=== PATIENT | female | born 1935 | race Caucasian/White ===

== ENCOUNTER 2018-11-26 04:00 | Inpatient (IN) | payer MEDICARE, BC ==
[2018-11-26 06:19] LABS: ABSOLUTE EOSINOPHILS # (AUTO) 0.1 10^3/uL (0.0-0.6); ABSOLUTE LYMPHOCYTES (AUTO) 1.4 10^3/uL (0.5-4.7); ABSOLUTE MONOCYTES (AUTO) 0.5 10^3/uL (0.1-1.4); ABSOLUTE NEUT (AUTO) 7.1 10^3/uL (1.7-8.2); BASOPHILS % (AUTO) 0.5 % (0-2); EOSINOPHILS % (AUTO) 0.9 % (0-6); HEMATOCRIT 34.2 % (36.0-47.0); HEMOGLOBIN 11.4 g/dL (12.0-15.5); LYMPHOCYTES % (AUTO) 15.6 % (13-45); MEAN CORPUSCULAR HEMOGLOBIN 28.9 pg (27.0-33.4); MEAN CORPUSCULAR HGB CONC 33.4 g/dL (32.0-36.0); MEAN CORPUSCULAR VOLUME 87 fl (80-97); MONOCYTES % (AUTO) 5.2 % (3-13); PLATELET COUNT 279 10^3/uL (150-450); RED BLOOD COUNT 3.95 10^6/uL (3.72-5.28); RED CELL DISTRIBUTION WIDTH 14.1 % (11.5-14.0); SEGMENTED NEUTROPHILS % (AUTO) 77.8 % (42-78); TOTAL CELLS COUNTED % (AUTO) 100 %; WHITE BLOOD COUNT 9.1 10^3/uL (4.0-10.5)
[2018-11-26 06:22] LABS: VENOUS BLOOD BASE EXCESS -2.2 mmol/L; VENOUS BLOOD HCO3 23.7 mmol/L (20-32); VENOUS BLOOD PCO2 44.7 mmHg (35-63); VENOUS BLOOD PH 7.34 (7.30-7.42)
[2018-11-26 06:24] LABS: INTERNATIONAL RATION (INR) 1.09; PROTHROMBIN TIME 14.1 SEC (11.4-15.4)
[2018-11-26 06:27] LABS: ALBUMIN 3.5 g/dL (3.5-5.0); ALKALINE PHOSPHATASE 89 U/L (38-126); ANION GAP 10 (5-19); ASPARTATE AMINO TRANSFERASE 17 U/L (14-36); BILIRUBIN,TOTAL 0.4 mg/dL (0.2-1.3); BLOOD UREA NITROGEN 17 mg/dL (7-20); CALCIUM 9.2 mg/dL (8.4-10.2); CARBON DIOXIDE 25 mmol/L (22-30); CHLORIDE 105 mmol/L (98-107); GLUCOSE 171 mg/dL (75-110); POTASSIUM 3.5 mmol/L (3.6-5.0)
[2018-11-26] MEDS: NORMAL SALINE 1000 ML 1,000 ML IV PRN ×4 (07:54→22:55)
--- NOTE | 2018-11-26 08:03 | RADIOLOGY REPORT (SQ) ---
EXAM DESCRIPTION: CT ABDOMEN PELVIS WITHOUT IV CONTRAST COMPLETED DATE/TME: 11/26/2018 06:13 CLINICAL HISTORY: 83 years, Female, abd pain, N/VD COMPARISON: None. TECHNIQUE: Axial CT images of the abdomen and pelvis were obtained without contrast. Sagittal and coronal reformats were performed. DLP 561 Images stored on PACS. All CT scanners at this facility use dose modulation, iterative reconstruction, and/or weight based dosing when appropriate to reduce radiation dose to as low as reasonably achievable (ALARA). [facility]: Dose Right [facility]: CareDose [facility]: Dose Right [facility]: Teradose 4D [facility]: [employer] LIMITATIONS: None. FINDINGS: Lung bases are clear except for some subsegmental atelectasis of the left lower lobe. Hepatic cysts are noted. There is layering hyperdensity within the gallbladder, which may represent sludge or tiny stones. The pancreas, spleen, and adrenal glands are unremarkable. No evidence of urolithiasis or hydronephrosis bilaterally. There is no intraperitoneal free air or fluid. There is no lymphadenopathy. There are atherosclerotic calcifications of the abdominal aorta without evidence of aneurysm. There is a large hiatal hernia. The small bowel is unremarkable. The appendix is not uniquely identified, however there are no pericecal inflammatory changes. Diverticulosis is noted without evidence of diverticulitis. A Cobian catheter is in place. There are changes of a hysterectomy. There are no lytic or blastic bone lesions. There is mild grade 1 anterolisthesis of L4 over L5 secondary to facet arthropathy. IMPRESSION: No acute findings. Large hiatal hernia. Diverticulosis without evidence of diverticulitis. TECHNICAL DOCUMENTATION: Quality ID # 436: Final reports with documentation of one or more dose reduction techniques (e.g., Automated exposure control, adjustment of the mA and/or kV according to patient size, use of iterative reconstruction technique) copyright 2010 [employer]- All Rights Reserved
[2018-11-26 08:15] LABS: APPEARANCE,URINE SLIGHTLY-CLOUDY; BILIRUBIN,URINE NEGATIVE (NEGATIVE); COLOR,URINE YELLOW; GLUCOSE, URINE 50 mg/dL (NEGATIVE); KETONES,URINE TRACE mg/dL (NEGATIVE); LEUKOCYTE ESTERASE,URINE NEGATIVE (NEGATIVE); NITRITE,URINE POSITIVE (NEGATIVE); PROTEIN,URINE NEGATIVE (NEGATIVE); URINE SPECIFIC GRAVITY 1.012; UROBILINOGEN,URINE NEGATIVE mg/dL (<2.0)
--- NOTE | 2018-11-26 08:28 | RADIOLOGY REPORT (SQ) ---
EXAM DESCRIPTION: CHEST SINGLE VIEW COMPLETED DATE/TIME: 11/26/2018 7:25 am REASON FOR STUDY: AMS COMPARISON: None. EXAM PARAMETERS: NUMBER OF VIEWS: One view. TECHNIQUE: Single frontal radiographic view of the chest acquired. RADIATION DOSE: NA LIMITATIONS: None. FINDINGS: LUNGS AND PLEURA: No opacities, masses or pneumothorax. No pleural effusion. MEDIASTINUM AND HILAR STRUCTURES: No masses. Contour normal. HEART AND VASCULAR STRUCTURES: Cardiomegaly. BONES: No acute findings. HARDWARE: None in the chest. OTHER: No other significant finding. IMPRESSION: Cardiomegaly without acute abnormality of the lungs in AP projection TECHNICAL DOCUMENTATION: JOB ID: [id number] [employer]- All Rights Reserved Reading location - IP/workstation name: [email or web address]
--- NOTE | 2018-11-26 09:27 | EKG REPORT ---
SEVERITY:- ABNORMAL ECG - SINUS RHYTHM VENTRICULAR PREMATURE COMPLEX INTERPOLATED VENTRICULAR PREMATURE COMPLEX FIRST DEGREE AV BLOCK BORDERLINE PROLONGED QT INTERVAL : Confirmed by: Jesika Toussaint MD 26-Nov-2018 09:26:23
[2018-11-26] MEDS ORDERED: CEFTRIAXONE 1 GM/D5W RTU 1 GM/50 ML RTUPB IV ONE (09:56)
[2018-11-26 09:58] LABS: C DIFFICILE GDH NEGATIVE (NEGATIVE)
[2018-11-26] MEDS ORDERED: ONDANSETRON HCL INJ/PF 4 MG/2 ML SDV IV PRN (10:34)
[2018-11-26] MEDS ORDERED: MAG HYDROX/AL HYDROX/SIMETH SUSP 30 ML UDCUP PO PRN (10:34)
[2018-11-26] MEDS ORDERED: ALBUTEROL SULFATE 0.083% NEB 2.5 MG/3 ML AMPUL NEB PRN (10:34)
[2018-11-26] MEDS ORDERED: PROMETHAZINE HCL INJ 25 MG/1 ML VIAL IV PRN (10:34)
--- NOTE | 2018-11-26 10:39 | ER Document Report ---
Doctor's Note Notes: 11/26/18 10:00 Patient is an 83-year-old female whose care was transitioned to pr at 6:30 AM. Patient was seen during EMR downtime so initial history is on paper chart. Patient was brought in for decreased mentation. Patient had had vomiting and diarrhea. Found to be hypothermic in the emergency department with a tempe rature of 94. Initial heart rate in the 40s. Atropine given in warmer placed. Fluids given and patient has responded well to this. She has had a heart rate in the 80s to 90s for the last 4 hours. Blood work is within normal limits except for an elevated lactate of 2.7. Patient received 2 L of fluid and the lactate is now less than 2. Given patient's presentation, she will be kept for admission. Discussed with hospitalist service. Urine is from straight cath. Culture sent and Rocephin ordered given concerning presentation although could be contaminant from diarrhea. Patient apparently ate allyn lettuce last night the rest of the family did not have. Otherwise, she is improved from presentation and stable at the time of admission to the [facility]. Discharge - Discharge Clinical Impression: Dehydration, Bradycardia Hypothermia Qualifiers: Encounter type: initial encounter Qualified Code(s): T68.XXXA - Hypothermia, initial encounter Condition: Stable Disposition: ADMITTED INPATIENT Admitting Provider: Sheila (Hospitalist) - [facility] [place] [facility] Admitted: [facility]
[2018-11-26] MEDS ORDERED: ACETAMINOPHEN 650 MG SUPP.RECT PR PRN (14:35)
[2018-11-26] MEDS ORDERED: LORAZEPAM INJ 2 MG/1 ML VIAL ONE (14:38)
[2018-11-26] MEDS ORDERED: ACETAMINOPHEN 650 MG SUPP.RECT PR ONE (14:39)
[2018-11-26] MEDS: LORAZEPAM INJ 2 MG/1 ML VIAL IV PRN (14:45)
[2018-11-26] MEDS: HEPARIN SOD (PORCINE) 5,000 UNIT/ML 1 ML VIAL SUBCUT SCH ×2 (15:10→23:02)
[2018-11-26] MEDS: MEMANTINE HCL 10 MG TABLET PO SCH (18:37)
[2018-11-26] MEDS: ARIPIPRAZOLE 5 MG TABLET PO SCH (18:37)
--- NOTE | 2018-11-26 19:25 | PDOC H&P ---
History of Present Illness Admission Date/PCP: 11/26/18 10:41 GINA ABDI Patient complains of: Nausea, vomiting, diarrhea, weakness History of Present Illness: LINDA GUTIERREZ is a 83 year old female with a past medical history significant for hypertension, dementia, and depression who presented to the emergency department today via EMS for decreased mentation; patient had had multiple episodes of vomiting and diarrhea overnight. Evaluation in the emergency room initially revealed hypothermia (core temperature 94) heart rate in the 40s, tachypnea (25), and elevated lactic acid of 2.7 which corrected following IV fluids. Chest x-ray was benign, urinalysis suggestive of UTI, CT abdomen pelvis is benign. The patient received IV fluids, atropine x1, bear hugger, with return of normal temperature, heart rate of the stable in the 80s and 90s, and normotensive blood pressures. She was provided IV Rocephin and referred to the hospitalist service for admission and management of the above-stated complaints. Past Medical History Past Medical History: Past medical history is limited; patient is oriented to self only. No family members present at this time. Cardiac Medical History: Reports: Hypertension Endocrine Medical History: Reports: Obesity Psychiatric Medical History: Reports: Dementia, Depression Past Surgical History Past Surgical History: Unable to obtain secondary to patient's baseline mental status. No family members present at this time. Social History Information Source: [facility] Records Lives with: Family Smoking Status: Unknown if Ever Smoked Frequency of Alcohol Use: None Hx Recreational Drug Use: No Drugs: None Hx Prescription Drug Abuse: No - Advance Directive Resuscitation Status: Full Code Family History Family History: Unable to obtain secondary to patient's baseline mental status. No family members present at this time. Parental Family History Reviewed: No Children Family History Reviewed: No Sibling(s) Family History Reviewed.: No Medication/Allergy Home Medications: Aripiprazole [Abilify 5 mg Tablet] 2.5 mg PO BID 11/26/18 Brimonidine Tartrate [Alphagan 0.2% Oph Soln 5 ml] 1 drop OD TID 11/26/18 Donepezil HCl 10 mg PO DAILY 11/26/18 Dorzolamide HCl/Timolol Maleat [Cosopt Oph Soln 10 ml] 1 drop OD DAILY 11/26/18 Escitalopram Oxalate [Lexapro] 20 mg PO DAILY 11/26/18 Latanoprost [Xalatan 0.005% Oph Soln 2.5 ml] 1 drop OD QPM 11/26/18 Losartan Potassium [Cozaar 25 mg Tablet] 25 mg PO DAILY 11/26/18 Memantine HCl 10 mg PO BID 11/26/18 Allergies/Adverse Reactions: No Known Allergies Allergy (Unverified 11/26/18 06:26) Review of Systems ROS unobtainable: Due to mental status Integumentary: ABSENT: rash, wounds Physical Exam Vital Signs: Temp Pulse Resp BP Pulse Ox 99.0 F 21 H 111/75 98 11/26/18 17:50 11/26/18 17:50 11/26/18 17:03 11/26/18 17:50 Intake & Output 11/25/18 11/26/18 11/27/18 06:59 06:59 06:59 Intake Total 1067 Output Total 975 Balance 92 Weight 84 kg General appearance: PRESENT: no acute distress, cooperative, obese, well- developed, well-nourished Head exam: PRESENT: atraumatic, normocephalic Eye exam: PRESENT: conjunctiva pink, EOMI, PERRLA. ABSENT: scleral icterus Ear exam: PRESENT: normal external ear exam Mouth exam: PRESENT: moist, tongue midline Teeth exam: PRESENT: poor dentation Neck exam: ABSENT: carotid bruit, JVD, lymphadenopathy, thyromegaly Respiratory exam: PRESENT: clear to auscultation kev, symmetrical, unlabored. ABSENT: rales, rhonchi, wheezes Cardiovascular exam: PRESENT: RRR, +S1, +S2. ABSENT: diastolic murmur, rubs, systolic murmur Pulses: PRESENT: normal dorsalis pedis pul Vascular exam: PRESENT: normal capillary refill GI/Abdominal exam: PRESENT: normal bowel sounds, soft. ABSENT: distended, guarding, mass, organolmegaly, rebound, tenderness Rectal exam: PRESENT: deferred Extremities exam: PRESENT: full ROM. ABSENT: calf tenderness, clubbing, pedal edema Neurological exam: PRESENT: alert, awake, oriented to person, CN II-XII grossly intact, other - Conversational and socially appropriate. ABSENT: oriented to place, oriented to time, oriented to situation, motor sensory deficit Psychiatric exam: PRESENT: appropriate affect, normal mood. ABSENT: homicidal ideation, suicidal ideation Skin exam: PRESENT: dry, intact, warm. ABSENT: cyanosis, rash Results Laboratory Results: 11/26/18 04:50 11/26/18 04:50 11/26/18 11/26/18 11/26/18 04:50 04:50 04:50 WBC 9.1 RBC 3.95 Hgb 11.4 L Hct 34.2 L MCV 87 MCH 28.9 MCHC 33.4 RDW 14.1 H Plt Count 279 Seg Neutrophils % 77.8 VBG pH VBG pCO2 VBG HCO3 VBG Base Excess Sodium 139.9 Potassium 3.5 L Chloride 105 Carbon Dioxide 25 Anion Gap 10 BUN 17 Creatinine 0.96 Est GFR ( Amer) > 60 Glucose 171 H Lactic Acid 2.7 H Calcium 9.2 Total Bilirubin 0.4 AST 17 Alkaline Phosphatase 89 Total Protein 6.0 L Albumin 3.5 Urine Color Urine Appearance Urine pH Ur Specific [place] Urine Protein Urine Glucose (UA) Urine Ketones Urine Blood Urine Nitrite Ur Leukocyte Esterase Urine WBC (Auto) Urine RBC (Auto) Stool for White Cells 11/26/18 11/26/18 11/26/18 04:50 06: 07:48 WBC RBC Hgb Hct MCV MCH MCHC RDW Plt Count Seg Neutrophils % VBG pH 7.34 VBG pCO2 44.7 VBG HCO3 23.7 VBG Base Excess -2.2 Sodium Potassium Chloride Carbon Dioxide Anion Gap BUN Creatinine Est GFR ( Amer) Glucose Lactic Acid Calcium Total Bilirubin AST Alkaline Phosphatase Total Protein Albumin Urine Color YELLOW Urine Appearance SLIGHTLY-CLOUDY Urine pH 7.0 Ur Specific [place] 1.012 Urine Protein NEGATIVE Urine Glucose (UA) 50 H Urine Ketones TRACE H Urine Blood NEGATIVE Urine Nitrite POSITIVE H Ur Leukocyte Esterase NEGATIVE Urine WBC (Auto) 1 Urine RBC (Auto) 1 Stool for White Cells NO WBCs SEEN 11/26/18 08:16 WBC RBC Hgb Hct MCV MCH MCHC RDW Plt Count Seg Neutrophils % VBG pH VBG pCO2 VBG HCO3 VBG Base Excess Sodium Potassium Chloride Carbon Dioxide Anion Gap BUN Creatinine Est GFR ( Amer) Glucose Lactic Acid 1.1 Calcium Total Bilirubin AST Alkaline Phosphatase Total Protein Albumin Urine Color Urine Appearance Urine pH Ur Specific [place] Urine Protein Urine Glucose (UA) Urine Ketones Urine Blood Urine Nitrite Ur Leukocyte Esterase Urine WBC (Auto) Urine RBC (Auto) Stool for White Cells 09/02/0311/26/18 11/26/18 04:50 04:50 11:00 Creatine Kinase 32 Troponin I 0.031 0.100 11/26/18 16:00 Creatine Kinase Troponin I 0.096 Impressions: Chest X-Ray 11/26/18 00:00 IMPRESSION: Cardiomegaly without acute abnormality of the lungs in AP projection Abdomen/Pelvis CT 11/26/18 06:13 IMPRESSION: No acute findings. Large hiatal hernia. Diverticulosis without evidence of diverticulitis. TECHNICAL DOCUMENTATION: Quality ID # 436: Final reports with documentation of one or more dose reduction techniques (e.g., Automated exposure control, adjustment of the mA and/or kV according to patient size, use of iterative reconstruction technique) copyright 2011 [employer]- All Rights Reserved Assessment and Plan - Diagnosis (1) Urinary tract infection Is this a current diagnosis for this admission?: Yes Plan: Urinalysis reveals UTI. Urine and blood cultures are pending. Patient is empirically placed on IV Rocephin. Will adjust as cultures result. (2) Sepsis Is this a current diagnosis for this admission?: Yes Plan: Multifactorial due to urinary tract infection and gastroenteritis (stool studies pending), present on arrival, evidenced by decreased alertness, hypothermia, bradycardia, tachypnea, elevated lactic acid, and UTI by urinalysis. Blood, urine, stool cultures pending. Patient received IV fluids, atropine for symptomatic bradycardia, placed on bear hugger while in the emergency department with stabilization of vital signs Patient is admitted to [facility] on continuous cardiac telemetry. Serial lactic acid has trended down. We will continue maintenance IV fluids Continue IV Rocephin; will adjust as cultures result. (3) Nausea vomiting and diarrhea Is this a current diagnosis for this admission?: Yes Plan: Likely secondary to sepsis/UTI. C. difficile is negative. Stool for WBCs is negative. Stool culture pending. IV fluids. Clear liquids; advance as tolerated. Antiemetics as needed. (4) Dementia Is this a current diagnosis for this admission?: Yes Plan: Continue home medication regiment of Aricept, Namenda, Abilify, Lexapro. Supportive therapy. Fall precautions. (5) Elevated troponin Is this a current diagnosis for this admission?: Yes Plan: Initial troponin was indeterminately elevated to 0.030. Did trend up to peak of 0.1; down to 0.096. Patient denies chest pain, however is noted to have advanced dementia. Upon arrival to the emergency department she was bradycardic and required atropine. This may have possibly been the source of her elevated troponins. Additionally, the patient presented with sepsis secondary to UTI. EKG demonstrated sinus rhythm with PVC, first-degree AV block, and prolonged QT interval. Chest x-ray demonstrated cardiomegaly but without acute cardiopulmonary processes. Patient likely has underlying CHF. We will obtain follow-up troponin with a.m. lab work. We will repeat EKG in the morning. Continue to monitor on cardiac telemetry. Consider cardiology consultation. - Time Time Spent with patient: 35 or more minutes Medications reviewed and adjusted accordingly: Yes Anticipated discharge: Home with Homehealth Within: within 72 hours
[2018-11-26] MEDS: LATANOPROST 0.005% OPH SOLN 2.5 ML OD SCH (19:34)
[2018-11-26] MEDS: BRIMONIDINE TARTRATE 0.2% OPH SOLN 5 ML OD SCH (22:58)
[2018-11-26] MEDS: FAMOTIDINE 20 MG TABLET PO SCH (23:02)
[2018-11-26] MEDS ORDERED: RINGERS SOLUTION,LACTATED 1,000 ML IV PRN (23:41)
[2018-11-26] MEDS ORDERED: VANCOMYCIN HCL INJ 1000 MG VIAL IV PRN (23:41)
[2018-11-26] MEDS ORDERED: ATROPINE SULFATE INJ 1 MG/1 ML VIAL IV ONE (23:45)
[2018-11-26] MEDS ORDERED: METOCLOPRAMIDE HCL INJ/PF 10 MG/2 ML SDV IV ONE (23:59)
[2018-11-26] MEDS ORDERED: CEFEPIME 2 GM/D5W RTU 2 GM/50 ML RTUPB IV ONE (23:59)
[2018-11-27] MEDS ORDERED: VANCOMYCIN HCL 1,500 MG in DEXTROSE 5%-WATER 250 ML IV ONE (00:30)
[2018-11-27] MEDS ORDERED: NORMAL SALINE 1000 ML 1,000 ML IV ONE ×2 (04:00→16:14)
[2018-11-27 05:07] LABS: HEMATOCRIT 29.5 % (36.0-47.0); HEMOGLOBIN 9.9 g/dL (12.0-15.5); MEAN CORPUSCULAR HEMOGLOBIN 29.4 pg (27.0-33.4); MEAN CORPUSCULAR HGB CONC 33.5 g/dL (32.0-36.0); MEAN CORPUSCULAR VOLUME 88 fl (80-97); PLATELET COUNT 192 10^3/uL (150-450); RED BLOOD COUNT 3.36 10^6/uL (3.72-5.28); RED CELL DISTRIBUTION WIDTH 13.6 % (11.5-14.0); WHITE BLOOD COUNT 6.9 10^3/uL (4.0-10.5)
[2018-11-27] MEDS: HEPARIN SOD (PORCINE) 5,000 UNIT/ML 1 ML VIAL SUBCUT SCH ×3 (05:26→21:34)
[2018-11-27] MEDS: BRIMONIDINE TARTRATE 0.2% OPH SOLN 5 ML OD SCH ×3 (05:27→22:39)
[2018-11-27 05:53] LABS: BLOOD UREA NITROGEN 9 mg/dL (7-20); CALCIUM 8.4 mg/dL (8.4-10.2); GLUCOSE 85 mg/dL (75-110); POTASSIUM 3.4 mmol/L (3.6-5.0)
[2018-11-27 05:58] LABS: CARBON DIOXIDE 26 mmol/L (22-30); CHLORIDE 111 mmol/L (98-107)
[2018-11-27 06:03] LABS: ANION GAP 5 (5-19)
[2018-11-27] MEDS: DONEPEZIL HCL 5 MG TABLET PO SCH (09:19)
[2018-11-27] MEDS: MEMANTINE HCL 10 MG TABLET PO SCH ×2 (09:20→17:57)
[2018-11-27] MEDS: LOSARTAN POTASSIUM 25 MG TABLET PO SCH (09:20)
[2018-11-27] MEDS: ESCITALOPRAM OXALATE 10 MG TABLET PO SCH (09:21)
[2018-11-27] MEDS: ACETAMINOPHEN 325 MG TABLET PO PRN (09:22)
[2018-11-27] MEDS: FAMOTIDINE 20 MG TABLET PO SCH ×2 (09:26→21:34)
[2018-11-27] MEDS: ARIPIPRAZOLE 5 MG TABLET PO SCH ×2 (09:27→18:03)
--- NOTE | 2018-11-27 09:34 | EKG REPORT ---
SEVERITY:- NORMAL ECG - SINUS RHYTHM : Confirmed by: Jesika Toussaint MD 27-Nov-2018 09:34:02
[2018-11-27] MEDS: NORMAL SALINE 1000 ML 1,000 ML IV PRN ×2 (09:45→19:50)
[2018-11-27] MEDS ORDERED: (PENDING PHARMACY ID) (Donepezil Hcl [Donepezil Hcl] 10 MG) PO SCH (10:00)
[2018-11-27] MEDS: DORZOLAMIDE HCL 2%/TIMOLOL MALEAT 0.5% OPH SOLN 10 ML OD SCH (10:24)
[2018-11-27] MEDS ORDERED: PHENOL/SODIUM PHENOLATE 100 SPRAY/177 ML BOTTLE PO PRN (11:20)
--- NOTE | 2018-11-27 15:06 | Progress Note Acknowledgement ---
Progress Note Acknowledgement Progess Note Acknowledgement: I, the undersigned member of the medical staff with appropriate privileges and with supervisory authority over Ese Hahn, a [facility] practice allied health professional, acknowledge that I have reviewed the progress notes entered on this patient, and in my professional judgment believe that the assessment made and/or any care evidenced was appropriate
--- NOTE | 2018-11-27 15:06 | PDOC PROGRESS REPORT ---
Subjective Progress Note for:: 11/27/18 Subjective:: LINDA GUTIERREZ is a 83 year old female with a past medical history significant for hypertension, dementia, and depression who was admitted 11/26/2018 for sepsis secondary to urinary tract infection. Patient is seen on morning rounds. She is found resting in bed comfortably on room air. She is awake and oriented to self. She is socially appropriate, but does not answer questions clearly/appropriately. She was able to work with physical therapy today; ambulated approximately 5 steps with 2 person assistance. Unknown baseline mobility. The patient denies all problems; no reported fever, chills, chest pain, dyspnea, abdominal pain, nausea vomiting or diarrhea. However, patient with advanced dementia. She does appear to be comfortable and is not noted to be in any acute distress. Nursing confirms that she has had no further episodes of emesis or diarrhea; request to advance diet. Nursing has also noted multiple episodes of bradycardia into the 30s and 40s. She did have a 6-second pause today. Reason For Visit: UTI,SEPSIS Physical Exam Vital Signs: Temp Pulse Resp BP Pulse Ox 98.2 F 57 L 16 115/52 L 93 11/27/18 12:19 11/27/18 14:00 11/27/18 12:45 11/27/18 12:19 11/27/18 12:45 Intake & Output 11/26/18 11/27/18 11/28/18 06:59 06:59 06:59 Intake Total 3067 1000 Output Total 1375 Balance 1692 1000 Weight 68 kg General appearance: PRESENT: no acute distress, cooperative, well-developed, well-nourished Head exam: PRESENT: atraumatic, normocephalic Eye exam: PRESENT: conjunctiva pink, other - Visually impaired both eyes. ABSENT: scleral icterus Ear exam: PRESENT: normal external ear exam Mouth exam: PRESENT: moist, tongue midline Teeth exam: PRESENT: poor dentation Neck exam: ABSENT: carotid bruit, JVD, lymphadenopathy, thyromegaly Respiratory exam: PRESENT: clear to auscultation kev, symmetrical, unlabored. ABSENT: rales, rhonchi, wheezes Cardiovascular exam: PRESENT: RRR, +S1, +S2. ABSENT: diastolic murmur, rubs, systolic murmur Pulses: PRESENT: normal dorsalis pedis pul Vascular exam: PRESENT: normal capillary refill GI/Abdominal exam: PRESENT: normal bowel sounds, soft. ABSENT: distended, guarding, mass, organolmegaly, rebound, tenderness Rectal exam: PRESENT: deferred Extremities exam: PRESENT: full ROM. ABSENT: calf tenderness, clubbing, pedal edema Neurological exam: PRESENT: alert, awake, oriented to person, oriented to place, CN II-XII grossly intact. ABSENT: oriented to time, oriented to situation, motor sensory deficit Psychiatric exam: PRESENT: appropriate affect, normal mood. ABSENT: homicidal ideation, suicidal ideation Skin exam: PRESENT: dry, intact, warm. ABSENT: cyanosis, rash Results Laboratory Results: 11/27/18 04:09 11/27/18 04:09 11/27/18 11/27/18 04:09 04:09 WBC 6.9 RBC 3.36 L Hgb 9.9 L Hct 29.5 L MCV 88 MCH 29.4 MCHC 33.5 RDW 13.6 Plt Count 192 Sodium 141.5 Potassium 3.4 L Chloride 111 H Carbon Dioxide 26 Anion Gap 5 BUN 9 Creatinine 1.00 Est GFR ( Amer) > 60 Glucose 85 Calcium 8.4 11/26/18 11/26/18 11/26/18 04:50 04:50 11:00 Creatine Kinase 32 Troponin I 0.031 0.100 11/26/18 11/27/18 16:00 04:09 Creatine Kinase Troponin I 0.096 0.053 Impressions: Chest X-Ray 11/26/18 00:00 IMPRESSION: Cardiomegaly without acute abnormality of the lungs in AP projection Abdomen/Pelvis CT 11/26/18 06:13 IMPRESSION: No acute findings. Large hiatal hernia. Diverticulosis without evidence of diverticulitis. TECHNICAL DOCUMENTATION: Quality ID # 436: Final reports with documentation of one or more dose reduction techniques (e.g., Automated exposure control, adjustment of the mA and/or kV according to patient size, use of iterative reconstruction technique) copyright 2011 [employer]- All Rights Reserved Assessment and Plan - Diagnosis (1) Urinary tract infection Is this a current diagnosis for this admission?: Yes Plan: Urinalysis reveals UTI. Urine culture shows gram-negative rods. Blood cultures negative at 24 hours. Patient is empirically placed on IV Rocephin. Will adjust as cultures result. (2) Sepsis Is this a current diagnosis for this admission?: Yes Plan: Resolved; patient is normotensive, has maintained normal body temperature, WBCs are normal, lactic acidosis has resolved. Multifactorial due to urinary tract infection and gastroenteritis (stool studies pending), present on arrival, evidenced by decreased alertness, hypothermia, bradycardia, tachypnea, elevated lactic acid, and UTI by urinalysis. Blood cultures are negative at 24 hours. Urine culture showed gram-negative rods. Stool cultures are pending. Patient received IV fluids, atropine for symptomatic bradycardia, placed on bear hugger while in the emergency department with stabilization of vital signs Patient is admitted to [facility] on continuous cardiac telemetry. We will continue maintenance IV fluids Continue IV Rocephin; will adjust as cultures result. (3) Nausea vomiting and diarrhea Is this a current diagnosis for this admission?: Yes Plan: Resolved; no further episodes of emesis or diarrhea. Likely secondary to sepsis/UTI. C. difficile is negative. Stool for WBCs is negative. Stool culture pending. IV fluids. Will advance to a regular diet today. Antiemetics as needed. (4) Dementia Is this a current diagnosis for this admission?: Yes Plan: Continue home medication regiment of Aricept, Namenda, Abilify, Lexapro. Supportive therapy. Fall precautions. (5) Elevated troponin Is this a current diagnosis for this admission?: Yes Plan: Resolved and no longer following. Initial troponin was indeterminately elevated. 0.030-> 0.100-> 0.096-> 0.053. Patient denies chest pain, however is noted to have advanced dementia. Upon arrival to the emergency department she was bradycardic and required atropine. This may have possibly been the source of her elevated troponins. Additionally, the patient presented with sepsis secondary to UTI. EKG demonstrated sinus rhythm with PVC, first-degree AV block, and prolonged QT interval. Chest x-ray demonstrated cardiomegaly but without acute cardiopulmonary processes. Patient likely has underlying CHF. Repeat EKGs today. Initial this morning showed normal sinus rhythm. Follow-up this afternoon demonstrated sinus bradycardia. No AV block or prolonged QTC was noted. Continue to monitor on cardiac telemetry. (6) Bradycardia Is this a current diagnosis for this admission?: Yes Plan: On arrival to the emergency department, the patient was noted to have symptomatic bradycardia, presumed to be due to sepsis, and treated with IV fluids, bear hugger blanket, and atropine. Her heart rate improved and remained consistently in the 80s to 90s throughout most of the day yesterday. However, overnight the patient was noted to have periods of bradycardia while sleeping into the mid 30s. Today she was also noted to bradycardia down to 44. EKG obtained at that time demonstrated sinus bradycardia without AV block or prolonged QTC. Patient was awake and oriented to her baseline throughout this time. Review of her home medications was conducted; did not find bradycardia has a documented side effect. Patient's family member at bedside confirm the patient is a DNR. We will discuss with their goals of care; consider cardiology consultation. - Time Time Spent with patient: 25-34 minutes Medications reviewed and adjusted accordingly: Yes Anticipated discharge: Home with Homehealth Within: within 72 hours
[2018-11-27] MEDS ORDERED: POTASSIUM CHLORIDE 20 MEQ PACKET PO ONE (16:00)
[2018-11-27] MEDS ORDERED: ATROPINE SULFATE INJ 1 MG/10 ML DISP.SYRIN IV ONE (16:20)
[2018-11-27] MEDS: LATANOPROST 0.005% OPH SOLN 2.5 ML OD SCH (17:57)
[2018-11-27] MEDS ORDERED: ATROPINE SULFATE INJ 1 MG/1 ML VIAL IV ONE (18:00)
[2018-11-27] MEDS ORDERED: SCOPOLAMINE HYDROBROMIDE 1.5 MG PATCH.TD72 TD ONE (18:00)
[2018-11-27] MEDS: LORAZEPAM INJ 2 MG/1 ML VIAL IV PRN (21:35)
[2018-11-28] MEDS ORDERED: DIAZEPAM 5 MG TABLET PO ONE (01:45)
[2018-11-28 05:43] LABS: ANION GAP 6 (5-19); BLOOD UREA NITROGEN 6 mg/dL (7-20); CALCIUM 8.5 mg/dL (8.4-10.2); CARBON DIOXIDE 24 mmol/L (22-30); CHLORIDE 112 mmol/L (98-107); GLUCOSE 88 mg/dL (75-110); POTASSIUM 3.5 mmol/L (3.6-5.0)
[2018-11-28] MEDS: BRIMONIDINE TARTRATE 0.2% OPH SOLN 5 ML OD SCH ×3 (05:44→22:32)
[2018-11-28] MEDS: HEPARIN SOD (PORCINE) 5,000 UNIT/ML 1 ML VIAL SUBCUT SCH ×3 (05:45→22:48)
--- NOTE | 2018-11-28 08:55 | EKG REPORT ---
SEVERITY:- OTHERWISE NORMAL ECG - SINUS BRADYCARDIA ATRIAL PREMATURE COMPLEX : Confirmed by: Jesika Toussaint MD 28-Nov-2018 08:53:36
[2018-11-28] MEDS: FAMOTIDINE 20 MG TABLET PO SCH ×2 (11:59→22:31)
[2018-11-28] MEDS: ARIPIPRAZOLE 5 MG TABLET PO SCH ×2 (11:59→17:03)
[2018-11-28] MEDS: MEMANTINE HCL 10 MG TABLET PO SCH ×2 (12:00→17:03)
[2018-11-28] MEDS: DONEPEZIL HCL 5 MG TABLET PO SCH (12:00)
[2018-11-28] MEDS: DORZOLAMIDE HCL 2%/TIMOLOL MALEAT 0.5% OPH SOLN 10 ML OD SCH (12:01)
[2018-11-28] MEDS: ESCITALOPRAM OXALATE 10 MG TABLET PO SCH (12:01)
[2018-11-28] MEDS: LOSARTAN POTASSIUM 25 MG TABLET PO SCH (12:02)
--- NOTE | 2018-11-28 14:10 | PDOC PROGRESS REPORT ---
Subjective Progress Note for:: 11/28/18 Subjective:: LINDA GUTIERREZ is a 83 year old female with a past medical history significant for hypertension, dementia, and depression who was admitted 11/26/2018 for sepsis secondary to urinary tract infection. Patient is seen on morning rounds. She is found resting in bed comfortably on room air. She is awake and oriented to self. She is socially appropriate, conversational, but confused. The patient denies all problems; no reported fever, chills, chest pain, dyspnea, abdominal pain, nausea vomiting or diarrhea. However, patient with advanced dementia. She does appear to be comfortable and is not noted to be in any acute distress. Nursing confirms that she has had no further episodes of emesis or bradycardia. Did become agitated overnight and required ativan. Reason For Visit: UTI,SEPSIS Physical Exam Vital Signs: Temp Pulse Resp BP Pulse Ox 98.4 F 69 16 136/55 H 94 11/28/18 12:28 11/28/18 12:54 11/28/18 12:54 11/28/18 12:28 11/28/18 12:54 Intake & Output 11/27/18 11/28/18 11/29/18 06:59 06:59 06:59 Intake Total 3067 2490 1999 Output Total 1375 1750 Balance 9720 551 4005 Weight 68 kg 73.4 kg General appearance: PRESENT: no acute distress, cooperative, well-developed, well-nourished - Overweight Head exam: PRESENT: atraumatic, normocephalic Eye exam: PRESENT: conjunctiva pink, EOMI, PERRLA, other - Visually impaired both eyes. ABSENT: scleral icterus Ear exam: PRESENT: normal external ear exam Mouth exam: PRESENT: moist, tongue midline Teeth exam: PRESENT: poor dentation Neck exam: ABSENT: carotid bruit, JVD, lymphadenopathy, thyromegaly Respiratory exam: PRESENT: clear to auscultation kev, symmetrical, unlabored, other - Room air. ABSENT: rales, rhonchi, wheezes Cardiovascular exam: PRESENT: RRR, +S1, +S2. ABSENT: diastolic murmur, rubs, systolic murmur Pulses: PRESENT: normal dorsalis pedis pul Vascular exam: PRESENT: normal capillary refill GI/Abdominal exam: PRESENT: normal bowel sounds, soft. ABSENT: distended, guarding, mass, organolmegaly, rebound, tenderness Rectal exam: PRESENT: deferred Gentrourinary exam: PRESENT: indwelling catheter Extremities exam: PRESENT: full ROM. ABSENT: calf tenderness, clubbing, pedal edema Neurological exam: PRESENT: alert, awake, oriented to person, CN II-XII grossly intact, other - pleasantly confused. ABSENT: oriented to place, oriented to time, oriented to situation, motor sensory deficit Psychiatric exam: PRESENT: appropriate affect, normal mood. ABSENT: homicidal ideation, suicidal ideation Skin exam: PRESENT: dry, intact, warm. ABSENT: cyanosis, rash Results Laboratory Results: 11/27/18 04:09 11/28/18 04:42 11/27/18 11/27/18 11/28/18 17:16 17:16 04:42 Sodium 142.0 Potassium 3.5 L Chloride 112 H Carbon Dioxide 24 Anion Gap 6 BUN 6 L Creatinine 0.90 Est GFR ( Amer) > 60 Glucose 88 Calcium 8.5 Magnesium 1.8 TSH 4.33 11/26/18 07:48 Clean Catch Midstream Urine Culture - Final Klebsiella Pneumoniae 11/26/18 11/26/18 11/26/18 04:50 04:50 11:00 Creatine Kinase 32 Troponin I 0.031 0.100 11/26/18 11/27/18 16:00 04:09 Creatine Kinase Troponin I 0.096 0.053 Impressions: Chest X-Ray 11/26/18 00:00 IMPRESSION: Cardiomegaly without acute abnormality of the lungs in AP projection Abdomen/Pelvis CT 11/26/18 06:13 IMPRESSION: No acute findings. Large hiatal hernia. Diverticulosis without evidence of diverticulitis. TECHNICAL DOCUMENTATION: Quality ID # 436: Final reports with documentation of one or more dose reduction techniques (e.g., Automated exposure control, adjustment of the mA and/or kV according to patient size, use of iterative reconstruction technique) copyright 2011 [employer]- All Rights Reserved Assessment and Plan - Diagnosis (1) Urinary tract infection Is this a current diagnosis for this admission?: Yes Plan: Urinalysis reveals UTI. Urine culture shows Klebsiella pneumoniae Blood cultures negative at 48 hours. Received 1 dose of IV cefepime and vancomycin. Patient is empirically placed on IV Rocephin; day #1. We will plan to transition to Augmentin at discharge for completion of antibiotic course. (2) Sepsis Is this a current diagnosis for this admission?: Yes Plan: Resolved; patient is normotensive, has maintained normal body temperature, WBCs are normal, lactic acidosis has resolved. Multifactorial due to urinary tract infection and gastroenteritis (stool studies pending), present on arrival, evidenced by decreased alertness, hypothermia, bradycardia, tachypnea, elevated lactic acid, and UTI by urinalysis. Blood cultures are negative at 48 hours. Urine culture showed Klebsiella pneumoniae Stool cultures are pending. Patient received IV fluids, atropine for symptomatic bradycardia, placed on bear hugger while in the emergency department with stabilization of vital signs Patient is admitted to [facility] on continuous cardiac telemetry. We will continue maintenance IV fluids Antibiotics as above. (3) Nausea vomiting and diarrhea Is this a current diagnosis for this admission?: Yes Plan: Resolved; no further episodes of emesis or diarrhea. Likely secondary to sepsis/UTI. C. difficile is negative. Stool for WBCs is negative. Stool culture pending. IV fluids. Now tolerating a regular diet Antiemetics as needed. (4) Dementia Is this a current diagnosis for this admission?: Yes Plan: Continue home medication regiment of Aricept, Namenda, Abilify, Lexapro. Supportive therapy. Fall precautions. (5) Elevated troponin Is this a current diagnosis for this admission?: Yes Plan: Resolved and no longer following. Initial troponin was indeterminately elevated. 0.030-> 0.100-> 0.096-> 0.053. Patient denies chest pain, however is noted to have advanced dementia. Upon arrival to the emergency department she was bradycardic and required atropine. This may have possibly been the source of her elevated troponins. Additionally, the patient presented with sepsis secondary to UTI. EKG demonstrated sinus rhythm with PVC, first-degree AV block, and prolonged QT interval. Chest x-ray demonstrated cardiomegaly but without acute cardiopulmonary processes. Patient likely has underlying CHF. Repeat EKGs today. Initial this morning showed normal sinus rhythm. Follow-up this afternoon demonstrated sinus bradycardia. No AV block or prolonged QTC was noted. Continue to monitor on cardiac telemetry. No longer following troponins (6) Bradycardia Is this a current diagnosis for this admission?: Yes Plan: On arrival to the emergency department, the patient was noted to have symptomati c bradycardia, presumed to be due to sepsis, and treated with IV fluids, bear hugger blanket, and atropine. Had additional bradycardic episodes yesterday. EKG obtained at that time demonstrated sinus bradycardia without AV block or prolonged QTC. Her episodes were intermittent but yesterday afternoon, she bradycardia down into the 30s with associated diaphoresis, nausea and vomiting. Discussed with Dr. Toussaint; recommended IV fluid bolus. Does not feel patient is a candidate for pacemaker due to age/baseline mental status. Patient did receive atropine 0.5 mg IV x1 yesterday. HR is now stable in the 80s. Scopolamine patch Continue to monitor on cardiac telemetry. Multiple attempts to reach family by phone were unsuccessful. We need to discuss with family their goals of care. Recommend consideration of hospice admission. - Time Time Spent with patient: 15-24 minutes Medications reviewed and adjusted accordingly: Yes Anticipated discharge: Home with Homehealth Within: within 24 hours
[2018-11-28] MEDS: ACETAMINOPHEN 325 MG TABLET PO PRN (17:02)
[2018-11-28] MEDS: NYSTATIN/DEXAMETH/DIPHEN SUSP 120 ML PO SCH ×3 (17:03→22:31)
[2018-11-28] MEDS: LATANOPROST 0.005% OPH SOLN 2.5 ML OD SCH (17:04)
[2018-11-28] MEDS: NORMAL SALINE 1000 ML 1,000 ML IV PRN (22:41)
[2018-11-29] MEDS: HEPARIN SOD (PORCINE) 5,000 UNIT/ML 1 ML VIAL SUBCUT SCH ×2 (05:25→14:56)
[2018-11-29] MEDS: BRIMONIDINE TARTRATE 0.2% OPH SOLN 5 ML OD SCH ×2 (05:27→14:56)
[2018-11-29 06:34] LABS: ANION GAP 7 (5-19); BLOOD UREA NITROGEN 6 mg/dL (7-20); CALCIUM 8.3 mg/dL (8.4-10.2); CARBON DIOXIDE 23 mmol/L (22-30); CHLORIDE 109 mmol/L (98-107); GLUCOSE 94 mg/dL (75-110); POTASSIUM 3.4 mmol/L (3.6-5.0)
[2018-11-29] MEDS ORDERED: POTASSIUM CHLORIDE 10 MEQ CAPSULE.ER PO ONE (08:00)
[2018-11-29] MEDS: CALCIUM CARBONATE 250 MG/VITAMIN D3 125 UNIT TABLET PO SCH ×2 (09:51→17:57)
[2018-11-29] MEDS: FAMOTIDINE 20 MG TABLET PO SCH (09:52)
[2018-11-29] MEDS: ESCITALOPRAM OXALATE 10 MG TABLET PO SCH (09:52)
[2018-11-29] MEDS: LOSARTAN POTASSIUM 25 MG TABLET PO SCH (09:52)
[2018-11-29] MEDS: MEMANTINE HCL 10 MG TABLET PO SCH ×2 (09:52→17:57)
[2018-11-29] MEDS: DONEPEZIL HCL 5 MG TABLET PO SCH (09:52)
[2018-11-29] MEDS: ARIPIPRAZOLE 5 MG TABLET PO SCH ×2 (09:52→17:57)
[2018-11-29] MEDS: DORZOLAMIDE HCL 2%/TIMOLOL MALEAT 0.5% OPH SOLN 10 ML OD SCH (09:58)
[2018-11-29] MEDS: NYSTATIN/DEXAMETH/DIPHEN SUSP 120 ML PO SCH ×3 (09:58→17:52)
[2018-11-29] MEDS ORDERED: CEFTRIAXONE 1 GM/D5W RTU 1 GM/50 ML RTUPB IV SCH (10:00)
[2018-11-29] MEDS: LATANOPROST 0.005% OPH SOLN 2.5 ML OD SCH (17:57)
[2018-11-29 18:42] VITALS: BP 134/47
--- NOTE | 2018-11-30 12:33 | PDOC DISCHARGE SUMMARY ---
General - Admit/Disc Date/PCP Admission Date/Primary Care Provider: 11/26/18 10:41 [place]: 11/29/18 - Discharge Diagnosis (1) Urinary tract infection Is this a current diagnosis for this admission?: Yes Summary: Urinalysis reveals UTI. Urine culture shows Klebsiella pneumoniae Blood cultures negative at 4 days Received 1 dose of IV cefepime and vancomycin while in the ED followed by IV Rocephin for empiric treatment. We will plan to transition to Augmentin at discharge for completion of antibiotic course. (2) Sepsis Is this a current diagnosis for this admission?: Yes Summary: Resolved; patient is normotensive, has maintained normal body temperature, WBCs are normal, lactic acidosis has resolved. Multifactorial due to urinary tract infection and gastroenteritis, present on arrival, evidenced by decreased alertness, hypothermia, bradycardia, tachypnea, elevated lactic acid, and UTI by urinalysis. Blood cultures are negative at 4 days Urine culture showed Klebsiella pneumoniae Stool cultures are negative. Patient received IV fluids, atropine for symptomatic bradycardia, and placed on bear hugger while in the emergency department with stabilization of vital signs Patient is admitted to [facility] on continuous cardiac telemetry. She was provided additional IV maintenance fluids. Cultures and antibiotics as above. (3) Nausea vomiting and diarrhea Is this a current diagnosis for this admission?: Yes Summary: Resolved; no further episodes of diarrhea. She did have one additional episode of nausea/vomiting on progress day 1 associated with bradycardia. Likely secondary to sepsis/UTI. C. difficile is negative. Stool for WBCs is negative. Stool culture negative. She was initially provided IV fluids and as needed antiemetics. She is now tolerating a regular diet. (4) Dementia Is this a current diagnosis for this admission?: Yes Summary: Continue home medication regiment of Aricept, Namenda, Abilify, Lexapro. Supportive therapy. (5) Elevated troponin Is this a current diagnosis for this admission?: Yes Summary: Resolved. Initial troponin was indeterminately elevated. 0.030-> 0.100-> 0.096-> 0.053. Patient denies chest pain, however is noted to have advanced dementia. Upon arrival to the emergency department she was bradycardic and required atr opine. This may have possibly been the source of her elevated troponins. Additionally, the patient presented with sepsis secondary to UTI. EKG demonstrated sinus rhythm with PVC, first-degree AV block, and prolonged QT interval. Chest x-ray demonstrated cardiomegaly but without acute cardiopulmonary processes. Patient likely has underlying CHF. Follow-up EKG obtained while heart rate in the mid 40s demonstrated sinus bradycardia. No AV block or prolonged QTC was noted. Discussed with Dr. Toussaint; given the patient's baseline mental and functional status, does not recommend further inpatient work-up. (6) Bradycardia Is this a current diagnosis for this admission?: Yes Summary: On arrival to the emergency department, the patient was noted to have symptomatic bradycardia, presumed to be due to sepsis, and treated with IV fluids, bear hugger blanket, and atropine. Had additional bradycardic episodes 11/27/18. EKG obtained at that time demonstrated sinus bradycardia without AV block or prolonged QTC. Discussed with Dr. Toussaint; recommended IV fluid bolus. Dr. Toussaint does believe the patient is a candidate for pacemaker due to age/baseline mental and functional status. Patient did receive atropine 0.5 mg IV x1 during a symptomatic episode on . She was provided a scopolamine patch for her nausea, may have additional benefit of tachycardia side effect. The patient was also noted to have mild hypoxia when sleeping; air saturations to 84% on room air. She was started on supplemental oxygen. Continue to monitor on cardiac telemetry; no further bradycardic episodes noted over the following 48 hrs. Did have a discussion by phone with the patient's daughter, Laura, regarding the patient's treatment course and episodes of symptomatic bradycardia. Laura was advised that while we felt that her bradycardia may be related to her urinary tract infection/sepsis, it was possible that she had underlying heart disease and that further bradycardia could occur despite resolution of her UTI. I ad vised the family that our in-house private branch exchange installer did not feel the patient would be a candidate for pacemaker placement, but offered to arrange for a referral to wic site coordinator for further review. Patient's daughter, Laura, expressed that the patient had been told this in the remote past and at that time chose not to have a pacemaker, but they would appreciate an evaluation by an additional private branch exchange installer for possible medical management. Patient is discharged with a referral to Dr. Jared Mason for follow up evaluation. (7) Chronic respiratory failure Is this a current diagnosis for this admission?: Yes Summary: Patient was noted to have room air saturations to 84% while at rest. After application of 2 lpm via NC, patient was noted to have stabilization of her HR and improved alertness/mentation. Arrangements were made for the patient to receive home oxygen services prior to her discharge. (8) Chronic diastolic (congestive) heart failure Is this a current diagnosis for this admission?: Yes Summary: Patient demonstrates cardiomegally on CXR. She has a Hx of HTN; previously on hypertension medications. Troponins were elevated; now trending down. Have advised patient and family of importance of cardiology follow up for CHF and symptomatic bradycardia. Patient may benefit from echocardiogram following discharge; will leave to discretion of referred private branch exchange installer. Referral placed to Dr. Mason. - Additional Information Resuscitation Status: Do Not Resuscitate Discharge Diet: Regular Discharge Activity: Activity As Tolerated, Balance Activity w/Rest Prescriptions: Cefuroxime Axetil [Ceftin 250 mg Tablet] 1 tab PO BID #10 tablet Phenol/Sodium Phenolate [Chloraseptic Sore Throat Brooks 177 ml] 2 spray PO PRN PRN #1 bottle PRN Reason: Nystatin/Dexameth/Diphen [Magic Mouthwash (Omh Formula) Susp] 5 ml PO QID #120 ml Calcium Carbonate/Vitamin D3 [Os-Jude 250 mg with Vitamin D 125 Units] 1 tab PO BID #30 tablet Home Medications: Aripiprazole [Abilify 5 mg Tablet] 2.5 mg PO BID 11/26/18 Brimonidine Tartrate [Alphagan 0.2% Oph Soln 5 ml] 1 drop OD TID 11/26/18 Donepezil HCl 10 mg PO DAILY 11/26/18 Dorzolamide HCl/Timolol Maleat [Cosopt Oph Soln 10 ml] 1 drop OD DAILY 11/26/18 Escitalopram Oxalate [Lexapro] 20 mg PO DAILY 11/26/18 Latanoprost [Xalatan 0.005% Oph Soln 2.5 ml] 1 drop OD QPM 11/26/18 Losartan Potassium [Cozaar 25 mg Tablet] 25 mg PO DAILY 11/26/18 Memantine HCl 10 mg PO BID 11/26/18 Acetaminophen [Tylenol 325 mg Tablet] 650 mg PO Q4HP PRN tablet 11/29/18 Calcium Carbonate/Vitamin D3 [Os-Jude 250 mg with Vitamin D 125 Units] 1 tab PO BID #30 tablet 11/29/18 Cefuroxime Axetil [Ceftin 250 mg Tablet] 1 tab PO BID #10 tablet 11/29/18 Nystatin/Dexameth/Diphen [Magic Mouthwash (Omh Formula) Susp] 5 ml PO QID #120 ml 11/29/18 Phenol/Sodium Phenolate [Chloraseptic Sore Throat Brooks 177 ml] 2 spray PO PRN PRN #1 bottle 11/29/18 History of Present Illness History of Present Illness: LINDA GUTIERREZ is a 83 year old female with a past medical history significant for hypertension, dementia, and depression who presented to the emergency department today via EMS for decreased mentation; patient had had multiple epis odes of vomiting and diarrhea overnight. Evaluation in the emergency room initially revealed hypothermia (core temperature 94) heart rate in the 40s, tachypnea (25), and elevated lactic acid of 2.7 which corrected following IV fluids. Chest x-ray was benign, urinalysis suggestive of UTI, CT abdomen pelvis is benign. The patient received IV fluids, atropine x1, bear hugger, with return of normal temperature, heart rate of the stable in the 80s and 90s, and normotensive blood pressures. She was provided IV Rocephin and referred to the hospitalist service for admission and management of the above-stated complaints. Physical Exam Vital Signs: Temp Pulse Resp BP Pulse Ox 98.6 F 67 18 134/47 H 91 L 11/29/18 18:00 11/29/18 18:00 11/29/18 18:00 11/29/18 18:00 11/29/18 18:00 Intake & Output 11/29/18 11/30/18 12/01/18 06:59 06:59 06:59 Intake Total 2340 1290 Output Total 1050 800 Balance 1290 490 Weight 71.8 kg General appearance: PRESENT: no acute distress, cooperative, well-developed, well-nourished - Overweight Head exam: PRESENT: atraumatic, normocephalic Eye exam: PRESENT: conjunctiva pink, EOMI, PERRLA, other - Visually impaired both eyes. ABSENT: scleral icterus Ear exam: PRESENT: normal external ear exam Mouth exam: PRESENT: moist, tongue midline Neck exam: ABSENT: carotid bruit, JVD, lymphadenopathy, thyromegaly Respiratory exam: PRESENT: clear to auscultation kev, symmetrical, unlabored, other - Supplemental oxygen via nasal cannula. ABSENT: rales, rhonchi, wheezes Cardiovascular exam: PRESENT: RRR. ABSENT: diastolic murmur, rubs, systolic murmur Pulses: PRESENT: normal dorsalis pedis pul Vascular exam: PRESENT: normal capillary refill GI/Abdominal exam: PRESENT: normal bowel sounds, soft. ABSENT: distended, guarding, mass, organolmegaly, rebound, tenderness Rectal exam: PRESENT: deferred Extremities exam: PRESENT: full ROM. ABSENT: calf tenderness, clubbing, pedal edema Neurological exam: PRESENT: alert, awake, oriented to person, CN II-XII grossly intact, other - At baseline mental status; oriented to self, intermittently oriented to place and situation. Otherwise, pleasantly confused.. ABSENT: motor sensory deficit Psychiatric exam: PRESENT: appropriate affect, normal mood. ABSENT: homicidal ideation, suicidal ideation Skin exam: PRESENT: dry, intact, warm. ABSENT: cyanosis, rash Results Laboratory Results: 11/27/18 04:09 11/29/18 05:33 11/26/18 06:05 Stool - Stool - Final 11/26/18 06:05 Stool - Stool Stool Culture - Final NO SALMONELLA, SHIGELLA, CAMPYLOBACTER, OR E.COLI 0157 RECOVERED. NEGATIVE FOR SHIGA TOXINS 1&2. 11/26/18 11/26/18 11/26/18 04:50 04:50 11:00 Creatine Kinase 32 Troponin I 0.031 0.100 11/26/18 11/27/18 16:00 04:09 Creatine Kinase Troponin I 0.096 0.053 Impressions: Chest X-Ray 11/26/18 00:00 IMPRESSION: Cardiomegaly without acute abnormality of the lungs in AP projection Abdomen/Pelvis CT 11/26/18 06:13 IMPRESSION: No acute findings. Large hiatal hernia. Diverticulosis without evidence of diverticulitis. TECHNICAL DOCUMENTATION: Quality ID # 436: Final reports with documentation of one or more dose reduction techniques (e.g., Automated exposure control, adjustment of the mA and/or kV according to patient size, use of iterative reconstruction technique) copyright 2011 [employer]- All Rights Reserved Qualifiers - * PATIENT BEING DISCHARGED WITH ANY OF THE FOLLOWING DIAGNOSIS: No Acute Heart Failure - Is this a Heart Failure Patient?: Yes Documentation of LVEF assessment?: Planned for after discharge LVEF < 40%?: No- if no continue to question #3 3. Anticoagulant therapy for permanect/persistent/paraoxysmal Afib or Aflutter: N/A Plan Discharge Plan: The patient was discharged to home, in stable condition, with home health nursing, physical therapy, occupational therapy, aide, and social work services. Arrangements were made for the patient to receive home oxygen. Follow up with primary care provider within 1 week. Call to make new patient appointment with Dr. Mason on Saturday when office is open. Return to the emergency department as needed for concerning symptoms. Time Spent: Greater than 30 Minutes
== END 2018-11-29 20:56 | disposition home health service (06) | DRG 872 ==
LOC: ER 04:00 → EH 10:41 → 3N 22:53
PROVIDERS: ADMIT Internal Medicine; ATTEND Internal Medicine
DX: A41.9 Sepsis, unspecified organism (principal); N39.0 Urinary tract infection, site not specified; J96.10 Chronic respiratory failure, unspecified whether with hypoxia or hypercapnia; I50.32 Chronic diastolic (congestive) heart failure; Z66 Do not resuscitate; R00.1 Bradycardia, unspecified; I11.0 Hypertensive heart disease with heart failure; K52.9 Noninfective gastroenteritis and colitis, unspecified; R11.2 Nausea with vomiting, unspecified; R68.0 Hypothermia, not associated with low environmental temperature; F03.90 Unspecified dementia, unspecified severity, without behavioral disturbance, psychotic disturbance, mood disturbance, and anxiety; B96.1 Klebsiella pneumoniae [K. pneumoniae] as the cause of diseases classified elsewhere
CPT/HCPCS: 36415; 51702; 71045; 74176; 80048; 80053; 81001; 82550; 82803; 83605; 83735; 84443; 84484; 85025; 85027; 85610; 87040; 87045; 87086; 87088; 87186; 87205; 87324; 87449; 89055; 93005; 93010; 96365; 96367; 96375; 99285; J0461; J0696; J1644; J2060; J2550; J3490; J7030